=== PATIENT | female | born 1970 | race Caucasian/White ===

== ENCOUNTER → 2022-12-14 08:54 | Outpatient (BNVA) | payer MEDICARE, MEDICAID, SELFPAY | PROVIDERS: PCP Internal Medicine; Visit Provider Internal Medicine Rheumatology | DX: M79.642 Pain in left hand (principal); M47.812 Spondylosis without myelopathy or radiculopathy, cervical region; M19.049 Primary osteoarthritis, unspecified hand; M79.7 Fibromyalgia | CPT/HCPCS: 99212 ==